=== PATIENT | female | born 1965 | race Caucasian/White ===

== ENCOUNTER 2023-08-31 12:24 | Day surgery (SDC) | payer OTHER ==
[2023-08-31] MEDS ORDERED: Neostigmine Methylsulfate 10 MG/10 ML MDV ONE (12:47)
[2023-08-31] MEDS ORDERED: Dexamethasone 4 MG/ML SDV ONE (13:10)
[2023-08-31] MEDS ORDERED: Propofol 200 MG/20 ML SDV ONE (13:10)
[2023-08-31] MEDS ORDERED: Midazolam 1 MG/ML 2 ML SDV ONE (13:10)
[2023-08-31] MEDS ORDERED: Ondansetron 4 MG/2 ML SDV ONE (13:10)
[2023-08-31] MEDS ORDERED: Rocuronium 50 MG/5 ML Vial ONE (13:10)
[2023-08-31] MEDS ORDERED: fentaNYL 100 MCG/2 ML SDV ONE (13:10)
[2023-08-31] MEDS ORDERED: Lidocaine 1% 4 ML ONE (13:11)
[2023-08-31] MEDS ORDERED: Sodium Chloride 0.9% 10 ML Syringe FLUSH PRN (13:35)
[2023-08-31] MEDS ORDERED: Lactated Ringers 1,000 ML IV SCH (13:45)
[2023-08-31] MEDS ORDERED: Sodium Chloride 0.9% 10 ML Syringe FLUSH SCH (21:00)
== END 2023-08-31 15:00 | disposition home or self-care (01) ==
LOC: JD.SDS 12:24
PROVIDERS: ATTEND Surgery
DX: Z12.11 Encounter for screening for malignant neoplasm of colon (principal); D12.5 Benign neoplasm of sigmoid colon; D12.3 Benign neoplasm of transverse colon; K63.89 Other specified diseases of intestine; K64.9 Unspecified hemorrhoids; I10 Essential (primary) hypertension; K21.9 Gastro-esophageal reflux disease without esophagitis; Z79.899 Other long term (current) drug therapy; Z87.891 Personal history of nicotine dependence
CPT/HCPCS: 45380; 45385; J1100; J2250; J2405; J2704; J2710; J3010; J7120; 00811; J3490